=== PATIENT | male | born 1945 | race Caucasian/White ===

== ENCOUNTER 2019-01-24 07:32 | Day surgery (SDC) | payer MEDICARE ==
[2019-01-24] MEDS ORDERED: LIDOCAINE 2% MDV (20MG/ML) 20ML VIAL IV ONE (07:33)
[2019-01-24] MEDS ORDERED: PROPOFOL 10 MG/ML VIAL IV ONE (07:33)
--- NOTE | 2019-01-25 06:10 | Operative Note ---
DATE OF SURGERY: 01/24/2019 SURGEON: Nawaf Logan, OPERATION: Colonoscopy to the cecum. PROCEDURE: The patient is a 73-year-old male who was brought to the endoscopy suite and placed in a supine position. Appropriate monitoring was placed including nasal O2, pulse oximetry, and blood pressure cuff. The patient was rotated into the left lateral position. Propofol anesthesia was titrated to effect. At this time, a digital rectal exam was done which revealed no internal masses. At this time, a well-lubricated [id number] colonoscope was inserted into the patient's rectum and advanced to the sigmoid where staple line was encountered from a prior anastomosis. Some mild scattered diverticuli were noticed as well. The scope was advanced through the descending, over the transverse, down the ascending colon to the cecum. Once the cecum was reached, it was identified by the appendiceal orifice and ileocecal valve. The scope was slowly withdrawn inspecting all mucosal surface areas. The prep was fair requiring multiple rounds of suctioning and irrigating. The scope was slowly withdrawn. There were no polyps, tumors, growths, or other. Once the level of the rectum was reached, retroflexion was done. There were some grade 1 hemorrhoids. At this time, scope was straightened, gas was evacuated, scope was fully removed. FINDINGS AT THE TIME OF COLONOSCOPY: 1. Scattered mild left-sided diverticulosis. 2. Status post anastomosis with left-sided staple line noted. Recommend repeating this in 10 years or sooner if any problems arise. MUNIR
== END 2019-01-24 08:55 | disposition home or self-care (01) ==
LOC: HOP 07:32
PROVIDERS: ATTEND Surgery
DX: Z12.11 Encounter for screening for malignant neoplasm of colon (principal); K57.30 Diverticulosis of large intestine without perforation or abscess without bleeding; Z98.890 Other specified postprocedural states; Z91.19 Patient's noncompliance with other medical treatment and regimen; I10 Essential (primary) hypertension
CPT/HCPCS: 00812; G0121